=== PATIENT | male | born 1970 | race Hispanic/Latino ===

== ENCOUNTER 2017-01-17 12:44 | Emergency (ER) | payer BC ==
[~2017-01-17] VITALS: Ht 170.2 cm; Wt 86.0 kg
[2017-01-17] MEDS ORDERED: FLUOCINONIDE0.053 EX (12:56)
[2017-01-17] MEDS ORDERED: HYDROCORTISONE1 % EX (12:57)
[2017-01-17] MEDS ORDERED: PREDNISONE50 MG PO (13:10)
[2017-01-17] MEDS ORDERED: HYDROCORTISONE BUTYRATE 0.1% EX (13:19)
[2017-01-17 13:33] VITALS: BP 119/70
== END 2017-01-17 13:33 | disposition home or self-care (01) | DRG 916 ==
LOC: ED 12:44
DX: T78.40XA Allergy, unspecified, initial encounter (principal); X58.XXXA Exposure to other specified factors, initial encounter